=== PATIENT | male | born 1965 | race Caucasian/White ===

== ENCOUNTER 2020-06-12 06:21 | Day surgery (SDC) | payer BC ==
[~2020-06-12] VITALS: Ht 182.9 cm; Wt 90.7 kg
[~2020-06-12 06:21] MED LIST: FISH OIL 1,0001 EAC1 PO; GLUCOSAMINE &1 EAC1 PO; IBUPROFEN600 MG PO; LORATADINE10 MG PO; PERCOCET 7.5-31 EACH PO
[2020-06-12] MEDS ORDERED: MACULAR HEALTH1 EACH PO (06:36)
[2020-06-12] MEDS ORDERED: VITAMIN D250 MCG PO (06:36)
[2020-06-12] MEDS ORDERED: VITAMIN C500 M1 PO (06:37)
--- NOTE | 2020-06-12 08:21 | NUR ---
PT ALERT, ORIENTED AND SEEMED TO DEAL WITH PREP APPROPRIATELY. PT IS LEAVING FOR A LONG TRIP IMMEDIATELY FOLLOWING DC. ALL QUESTIONS ASKED ANSWERED. PT REQUESTED PRAYER,
--- NOTE | 2020-06-12 08:24 | NUR ---
06/12/20 0824 Renea Rivera 0818- PT ARRIVES TO PACU. PT IS ABLE TO ANSWER QUESTIONS. PT REPORTS NO PAIN OR NAUSEA. PT EDUCATED TO PASS FLATUS NEEDED. PT STATES UNDERSTANDING. RESP EVEN AND UNLABORED. OXYGEN SAT HIGH 90'S TO 100% ON 3L VIA NC. PT HAS A LOWER PULSE AT BASELINE AND HAS BEEN BETWEEN 37-52.
--- NOTE | 2020-06-12 10:41 | OR ---
[facility] [address], [place] [address] Signed DATE OF OPERATION: SURGEON: Gio Geronimo MD PREOPERATIVE DIAGNOSES: 1. Positive Cologuard test. 2. Symptom free; no family history of colon cancer. POSTOPERATIVE DIAGNOSES: 1. Small polyp of cecum (excised). 2. Diverticulosis of sigmoid. PROCEDURE: Total colonoscopy to cecum with cold morcellation polypectomy x1. ANESTHESIA: Intravenous sedation, fentanyl 100 mcg and Versed 5 mg. INDICATION: This 54-year-old white man is patient of Dr. 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 The patient underwent a Cologuard test. He has no symptoms of bleeding diarrhea or constipation. The Cologuard test was positive. He has no family history of colon cancer, colon problems otherwise. He is admitted at this time to undergo colonoscopy on the basis of his positive Cologuard test. He understands the risks of bleeding, infection, and perforation, and wished to proceed. FINDINGS: The prep was good. Complete colonoscopy was undertaken of the cecum. Intubation of the ileum was accomplished as well. There was a very small polyp of the cecum, which was excised. The remaining colon was normal except for diverticulosis of the sigmoid. DESCRIPTION OF PROCEDURE: The patient was brought to the endoscopy suite and placed in lateral decubitus position, given intravenous sedation to the point of slurred speech and nystagmus with full cardiopulmonary monitoring. Digital rectal examination was found to be normal. An Olympus video colonoscope was passed in the rectum and manipulated throughout the colon noting numerous diverticula of the sigmoid and left colon. The prep was reasonably good. The scope was then ultimately passed to the cecum. The ileocecal valve and appendiceal orifice were normal. The scope was passed into the terminal ileum Electronically Signed By: GIO GERONIMO MD 06/12/20 1041 PATIENT NAME: CHARLIE MELENDEZ OPERATIVE REPORT DATE OF : 63 REPORT #: [id number] PHYSICIAN: GIO GERONIMO MD PCP: NAVDEEP CASTRO MD REPORT IS CONFIDENTIAL AND NOT TO BE RELEASED WITHOUT AUTHORIZATION [facility] [address], [place] [address] Signed and passed about 5-6 cm, which was also normal. The scope was withdrawn to the cecum and a small adenomatous appearing polyp was noted of the cecum. Narrow band imaging confirmed this impression. The lesion was excised with cold morcellation technique completely. The scope was carefully withdrawn and remaining examination showed no sign of other polyps or other abnormality. Retroflexed view of the rectum was normal as well. The scope was removed and the patient was taken to the recovery room in good condition. Special note, extreme care and caution were taken to thoroughly examine each and every cm of the colon on the basis of his Cologuard test and I am highly confident no other lesions would have been seen. CONCLUSION DIAGNOSIS: Small polyp of cecum (excised diverticulosis). PLAN: Recommend repeat colonoscopy in 3 years sooner if clinically indicated. Await pathology report to confirm adenomatous nature of the polyp. MD SARA Pérez/MARKUSL /[id number] cc: Navdeep Castro MD Copies: NAVDEEP CASTRO MD ~ Electronically Signed By: GIO GERONIMO MD 06/12/20 1041 PATIENT NAME: CHARLIE MELENDEZ OPERATIVE REPORT DATE OF : 63 REPORT #: [id number] PHYSICIAN: GIO GERONIMO MD PCP: NAVDEEP CASTRO MD REPORT IS CONFIDENTIAL AND NOT TO BE RELEASED WITHOUT AUTHORIZATION
--- NOTE | 2020-06-15 17:56 | PATH ---
[facility] [address], [place] [address] Signed SPECIMEN(S): A CECAL POLYP SPECIMEN SOURCE: A. CECAL POLYP CLINICAL HISTORY: Colonoscopy. Positive Cologuard test. MICROSCOPIC DESCRIPTION: Histologic sections of all submitted blocks are examined by light microscopy. These findings, together with the gross examination, support the pathologic diagnosis. FINAL PATHOLOGIC DIAGNOSIS: Colon, cecum, polyp, polypectomy: - Fragments of colonic mucosa with no histopathologic abnormality. - Negative for dysplasia or malignancy. - See comment. COMMENT: The mucosal tissue contains a benign mucosal lymphoid aggregate, which may sometimes appear as a polypoid lesion during colonoscopy. NAL:cml:C2NR GROSS DESCRIPTION: The specimen, labeled "MR, cecum polyp," is received in formalin and consists of two ramsey soft tissue fragments that measure 0.2 cm in greatest dimension. The specimen is entirely submitted in cassette (A1). JS (under the direct supervision of a pathologist) The Gross Description was prepared using a voice recognition system. The report was reviewed for accuracy; however, sound-alike word errors, addition and/or deletions may occur. If there is any question about this report, please contact Client Services. PERFORMING LABORATORY: The technical component was performed by [facility], [address] [place] [id number] (Air Quality Consultant: Mirela Davison MD; CLIA# [id number]). [facility], [address] [address] (CLIA# [id number]). PATIENT NAME: CHARLIE ROBBINS PATHOLOGY DATE OF : 63 REPORT #: [id number] PHYSICIAN: TWYLA PATHOLOGY PCP: SY WOODARD MD REPORT IS CONFIDENTIAL AND NOT TO BE RELEASED WITHOUT AUTHORIZATION [address] [place], [place] [address] Signed Diagnostician: Kajal Elder MD Pathologist Electronically Signed 06/15/2020 Copies: ~ PATIENT NAME: CHARLIE ROBBINS PATHOLOGY DATE OF : 63 REPORT #: [id number] PHYSICIAN: TWYLA PATHOLOGY PCP: SY WOODARD MD REPORT IS CONFIDENTIAL AND NOT TO BE RELEASED WITHOUT AUTHORIZATION
== END 2020-06-12 08:58 | disposition home or self-care (01) ==
LOC: DS 06:21 → OPS 06:21 → DS 06:25 → OPS 06:45
PROVIDERS: ATTEND Surgery
PROC: 0DBH8ZZ Excision of Cecum, Via Natural or Artificial Opening Endoscopic (ICD-10-PCS; principal; 2020-06-12 06:45)
DX: K63.5 Polyp of colon (principal); K57.30 Diverticulosis of large intestine without perforation or abscess without bleeding; G89.29 Other chronic pain; M54.5 Low back pain; Z88.8 Allergy status to other drugs, medicaments and biological substances; Z79.899 Other long term (current) drug therapy; Z98.890 Other specified postprocedural states
CPT/HCPCS: 99153; G0500; J2250; J3010; J7121

== ENCOUNTER → 2022-03-05 | Outpatient (CLI) | payer SELFPAY ==
[~2022-03-05] MED LIST changes: +MACULAR HEALTH1 EACH PO; +VITAMIN C500 M1 PO; +VITAMIN D250 MCG PO
== END ==
LOC: PHA 08:12
PROVIDERS: ATTEND Emergency Medicine
DX: U07.1 COVID-19 (principal)

== ENCOUNTER 2022-06-30 06:00 | Day surgery (SDC) | payer BC ==
[~2022-06-30] VITALS: Ht 182.9 cm; Wt 86.4 kg
[2022-06-30] MEDS ORDERED: ALLEGRA ALLERG180 MG PO (06:13)
[2022-06-30] MEDS ORDERED: B COMPLEX1 EACH PO (06:13)
--- NOTE | 2022-06-30 07:27 | NUR ---
VISTED WITH PT PRIOR TO SURGERY. PT SHARED THAT IT HAD BEEN DIFFICULT TO GET THE IV STARTED. TALKED WITH PT FOR A SHORT WHILE. PRAYED WITH PT.
--- NOTE | 2022-06-30 08:47 | NUR ---
06/30/22 0847 Antonieta Tiwari 0835 PATIENT TO PACU BAY 2. REPORT RECIEVED FROM GAYATHRI GRIJALVA. PATIENT IS NONREACTIVE. PATIENT HAS AN OPA IN PLACE. OXYGEN AT 6 LITERS VIA MASK. BREATHING EQUAL AND UNLABORED. SURGICAL SITE DRESSING CLEAN, DRY AND INTACT. IVF INFUSING. SCD'S ON. 08 PATIENT NONREACTIVE. OPA IN PLACE. OXYGEN AT SIX LITERS VIA MASK. BREATHING EQUAL AND UNLABORED. OXYGEN SATURATIONS ABOVE 90%. IVF INFUSING. SCD'S ON. 844 OPA REMOVED. OXYGEN AT 6 LITERS VIA MASK. BREATHING EQUAL AND UNLABORED. PATIENT IS REATIVE TO VERBAL STIMULI. PATIENT DENIES PAIN OR BEING NAUSEATED AT THIS TIME. SINUS VIRI ON TELE. SCD'S ON. IVF INFUSING.
[2022-06-30] MEDS ORDERED: OXYCODON-ACETA1 EAC2 PO (08:59)
[2022-06-30] MEDS ORDERED: ACETAMINOPHEN500 MG PO (08:59)
[2022-06-30] MEDS ORDERED: IBUPROFEN600 MG PO (08:59)
--- NOTE | 2022-06-30 09:36 | NUR ---
0920 PATIENT BACK FROM PACU. PATIENT IS ALERT AND ORIENTED. BREATHING EQUAL AND UNLABORED. OXYGEN SATURATIONS ABOVE 95% ON ROOM AIR. PATIENT SALINE LOCKED. SURGICAL SITE CLEAN, DRY AND INTACT. SCD'S ON. PATIENT DRINKING WATER AND EATING PUDDING. NO QUESTIONS AT THIS TIME. CALL LIGHT WITHIN REACH NO FUTHER NEEDS.
--- NOTE | 2022-06-30 10:02 | NUR ---
LE 0958 PATIENT GIVEN PRN PERCOCET FOR PAIN AT SURGICAL SITE. NO QUESTIONS AT THIS TIME. CALL LIGHT WITHIN REACH NO FUTHER NEEDS.
--- NOTE | 2022-06-30 11:26 | NUR ---
LE 1035 PATIENT HAS MET DISCHARGE CRITERIA. INSTRUCTIONS GIVEN AND UNDERSTOOD. NO QUESTIONS AT THIS TIME. PATIENT WAS WHEELED OUT OF FACILITY TO PRIVATE AUTO WITH SON. NO FUTHER NEEDS.
--- NOTE | 2022-07-03 14:34 | OR ---
[facility] [address] [place], [place] [address] Signed DATE OF OPERATION: 06/30/2022 SURGEON: Gio Geronimo MD PREOPERATIVE DIAGNOSIS: Right inguinal hernia. POSTOPERATIVE DIAGNOSES: 1. Right inguinal hernia, direct and indirect. 2. Large lipoma of the cord. PROCEDURES: 1. Right inguinal hernia repair with implantation of Prolene mesh underlay technique and excision of high ligation of sac. 2. Excision of cord lipoma. ANESTHESIA: General, LMA, Celso Gomez, VOCATIONAL TRAINING INSTRUCTOR and local 10 mL of 0.25% Marcaine with epinephrine. 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 He has in the meantime developed a right inguinal hernia. He is admitted to undergo repair of the hernia. He understands the risks of bleeding, infection, recurrence and so on. FINDINGS: An indirect sac was noted, moderate in size. There was no sign of sliding component. High ligation and excision of the sac was undertaken. Additionally, there was a cord lipoma, which was rather bulky. This was excised as well. A direct hernia was also noted with attenuation of the fibers of the fascia transversalis with direct herniation as well. On that basis, implantation of Prolene mesh was undertaken in the underlay technique. DESCRIPTION OF PROCEDURE: The patient was brought to the operating room, given a general LMA type anesthetic. Preoperative antibiotic Ancef was given. Sequential compression device stockings were used and heparin subcutaneously administered. The abdomen was prepared with a chlorhexidine solution after clipping in the lower abdomen. A small incision was made directly over the cord cephalad to the pubic tubercle. Dissection was carried through Electronically Signed By: GIO GERONIMO MD 07/03/22 1434 PATIENT NAME: CHARLIE ROBBINS OPERATIVE REPORT DATE OF : 63 REPORT #: [id number] PHYSICIAN: GIO GERONIMO MD PCP: NAVDEEP WOODARD MD REPORT IS CONFIDENTIAL AND NOT TO BE RELEASED WITHOUT AUTHORIZATION [facility] [address] [place], [place] [address] Signed the subcutaneous tissue with blunt electrocautery dissection. The external oblique was incised along its fibers revealing the underlying cord. The external oblique was reflected medially and laterally and the cord was freed from the canal with blunt electrocautery dissection. Cremasteric muscle fibers of the cord were incised revealing underlying indirect hernia sac. The hernia sac was rather large, though had no sign of incarcerated viscus. The hernia sac was dissected from the cord with meticulous care, opened and internally inspected showing no sign of sliding component. The neck of the hernia sac was secured with 2-0 silk sutures doubly applied and redundant hernia sac amputated and passed for pathology. An Allis clamp was applied to the tendon of the transversus abdominis. Inspection of the floor showed direct herniation as well. The attenuated fibers of the fascia transversalis were incised with electrocautery and the properitoneal fat was bluntly . The segment of Prolene mesh was cut to an elliptical configuration and secured in an underlay technique with interrupted 2-0 Prolene suture. The tails of the graft were taken laterally and avoidance of excessive tightening laterally was undertaken. The cord lipoma was dissected free from the cord as well and the vascular pedicle secured with hemostats to allow for excision of the lipoma and the pedicles were secured with 2-0 silk ties. A 10 mL of 0.25% Marcaine with epinephrine was injected locally. The cord was placed into the canal. Irrigation was undertaken. Aerosolized Tisseel fibrin glue was applied to the cord structures and the floor in particular to assure hemostasis. The external oblique was reapproximated with running 2-0 Vicryl suture after placing the cord into the canal. Alvina's layer was reapproximated with interrupted 2-0 Vicryl and skin closed with running subcuticular 3-0 Vicryl. Steri-Strips were applied as was an Acticoat dressing. The patient was extubated and transferred to the recovery room in good condition and suffered no complications. Sponge, needle, and instrument counts were reported as correct x3. MD SARA Pérez/MODL /[id number] cc: MD Navdeep Brandon MD Electronically Signed By: GIO GERONIMO MD 07/03/22 1434 PATIENT NAME: CHARLIE ROBBINS OPERATIVE REPORT DATE OF : 63 REPORT #: [id number] PHYSICIAN: GIO GERONIMO MD PCP: NAVDEEP WOODARD MD REPORT IS CONFIDENTIAL AND NOT TO BE RELEASED WITHOUT AUTHORIZATION [address] [address] Signed Copies: STANLEY ROBBINS MD, MALCOLM MD ~ Electronically Signed By: GIO GERONIMO MD 07/03/22 1434 PATIENT NAME: CHARLIE ROBBINS OPERATIVE REPORT DATE OF : 63 REPORT #: [id number] PHYSICIAN: GIO GERONIMO MD PCP: NAVDEEP WOODARD MD REPORT IS CONFIDENTIAL AND NOT TO BE RELEASED WITHOUT AUTHORIZATION
--- NOTE | 2022-07-04 18:46 | PATH ---
[facility] [address] [place], [place] [address] Signed SPECIMEN(S): A RIGHT INDIRECT HERNIA SAC SPECIMEN(S): B LIPOMA OF CORD SPECIMEN SOURCE: A. RIGHT INDIRECT HERNIA SAC B. LIPOMA OF CORD CLINICAL HISTORY: No preop or clinical information is given on requisition. FINAL PATHOLOGIC DIAGNOSIS: A. Hernia sac, right indirect, repair: - Unremarkable fibroadipose tissue. (see comment) B. Lipoma of cord, excision: - Mesothelial-lined fibrous tissue, fibrovascular tissue and fibroadipose tissue. (see comment) COMMENT: Specimen A, designated right indirect hernia sac, contains benign fibroadipose tissue, while specimen B, designated lipoma of cord, contains saccular tissue comprised of mesothelial-lined fibrous tissue. Despite their designations, the fibroadipose tissue would be more consistent with a lipoma of cord and the saccular mesothelial-lined fibrous tissue would be more consistent with a hernia sac. The specimens may have been switched, and clinical correlation is recommended. Of note, there is no evidence of malignant neoplasm in either specimen. NRT:cml:C2NR MICROSCOPIC EXAMINATION: Histologic sections of all submitted blocks are examined by light microscopy. These findings, together with the gross examination, support the pathologic diagnosis. GROSS DESCRIPTION: Two specimens are received in two containers, labeled "MR." A. The specimen, labeled "MR, A," and designated on the requisition "right indirect hernia sac," is received in formalin and consists of a ragged, somewhat saccular, yellow fibrofatty to ramsey-white fibromembranous, 6.7 x 5.2 x 1.5 cm, unoriented tissue piece without a discrete mass/lesion. Tipple Mechanic sections are submitted in one cassette (A1). PATIENT NAME: CHARLIE ROBBINS PATHOLOGY DATE OF : 63 REPORT #: [id number] PHYSICIAN: TWYLA PATHOLOGY PCP: SY WOODARD MD REPORT IS CONFIDENTIAL AND NOT TO BE RELEASED WITHOUT AUTHORIZATION [facility] [address] [place], [place] [address] Signed B. The specimen, labeled "MR, B," and designated on the requisition "lipoma of cord," is received in formalin and consists of a somewhat saccular, ragged, ramsey-white, fibromembranous, irregularly shaped, 5.7 x 3.7 x 0.6 cm tissue piece without the attached soft tissue or a discrete mass/lesion. Tipple Mechanic sections are submitted in one cassette (B1). AI (under the direct supervision of a pathologist) The Gross Description was prepared using a voice recognition system. The report was reviewed for accuracy; however, sound-alike word errors, addition and/or deletions may occur. If there is any question about this report, please contact Client Services. PERFORMING LABORATORY: The technical component was performed by [facility], [address] [place] [id number] (CLIA# [id number]). Professional interpretation was performed by [facility], [facility], [address] [facility], [facility] [place] [address] (CLIA# [id number]). Diagnostician: Lula Mai MD Pathologist Electronically Signed 07/04/2022 Copies: ~ PATIENT NAME: CHARLIE ROBBINS PATHOLOGY DATE OF : 63 REPORT #: [id number] PHYSICIAN: TWYLA PATHOLOGY PCP: SY WOODARD MD REPORT IS CONFIDENTIAL AND NOT TO BE RELEASED WITHOUT AUTHORIZATION
== END 2022-06-30 10:35 | disposition home or self-care (01) ==
LOC: DS 06:00
PROVIDERS: ATTEND Surgery
PROC: 0VBF0ZZ Excision of Right Spermatic Cord, Open Approach (ICD-10-PCS; 2022-06-30)
PROC: 0YU50JZ Supplement Right Inguinal Region with Synthetic Substitute, Open Approach (ICD-10-PCS; principal; 2022-06-30 07:30)
DX: K40.90 Unilateral inguinal hernia, without obstruction or gangrene, not specified as recurrent (principal); D17.6 Benign lipomatous neoplasm of spermatic cord; G89.29 Other chronic pain; M54.50 Low back pain, unspecified; Z88.6 Allergy status to analgesic agent
CPT/HCPCS: 00830; C1781; J0690; J1100; J1644; J1885; J2405; J2704; J3010; J7121

== ENCOUNTER 2024-02-01 11:57 | Day surgery (SDC) | payer BC ==
[~2024-02-01] VITALS: Ht 182.9 cm; Wt 90.9 kg
[~2024-02-01 11:57] MED LIST changes: +ACETAMINOPHEN500 MG PO; +ALLEGRA ALLERG180 MG PO; +B COMPLEX1 EACH PO; +IBLOOD GLUCOSE TEST STRIP 1 EA TEST VI PRN; +LACTATED RINGER'S 1,000 ML IV SCH; +LIDOCAINE HCL 1% 5 ML SDV INJ ONE; +MIDAZOLAM HCL 5 MG/5 ML VIAL IV PRN; +OXYCODON-ACETA1 EAC2 PO; +fentaNYL citrate 100 MCG/2 ML VIAL IV PRN
[2024-02-01 12:22] VITALS: BP 119/77
[2024-02-01] MEDS ORDERED: ZYRTEC10 MG PO (12:25)
[2024-02-01] MEDS ORDERED: MIDAZOLAM HCL 5 MG/5 ML VIAL ONE (13:17)
[2024-02-01] MEDS ORDERED: fentaNYL citrate 100 MCG/2 ML VIAL ONE (13:17)
--- NOTE | 2024-02-01 14:12 | NUR ---
02/01/24 1412 Juliana Alvarez 1407-PATIENT ARRIVED TO PACU ON 2L NC RR EVEN. PATIENT DROWSY, AWAKE LAYING LEFT LATERAL. DENIES PAIN OR NAUSEA. ORIENTED TO PACU. IVF INFUSING. ABDOMEN SOFT. PATIENT REPOSITIONS SELF IN BED. 1411-PATIENT RESTING WITH EYES CLOSED 2L NC 100% ENCOURAGED DEEP BREATHING
[2024-02-01 14:44] VITALS: BP 118/79
--- NOTE | 2024-02-01 15:29 | OR ---
[facility] [address] [place], [place] [address] Signed DATE OF OPERATION: 02/01/2024 SURGEON: Gio Geronimo MD PREOPERATIVE DIAGNOSIS: Colon screening. POSTOPERATIVE DIAGNOSIS: Two polyps, left transverse and rectum. PROCEDURE: Total colonoscopy to cecum with cold morcellation polypectomy x2. ANESTHESIA: Intravenous sedation; fentanyl 100 mcg and Versed 5 mg. 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 He underwent colonoscopy four years ago and was thought to have a cecal polyp which proved to be a lymphoid aggregate. He is symptom free having no bleeding, diarrhea or constipation. He wished to undergo colonoscopy at this time for screening purposes. He understands the risk of bleeding, infection, and perforation and wished to proceed. FINDINGS: The prep was good. Complete and full intubation of the cecum was accomplished without problem. There was no abnormality of the cecum on this occasion. There was a small adenomatous appearing polyp of the left transverse colon which was excised with cold morcellation technique and a very small probably hyperplastic polyp of the rectum and it was similarly excised. There were no other findings of note. DESCRIPTION OF PROCEDURE: The patient was brought to the endoscopy suite and placed in the lateral decubitus position, given intravenous sedation to the point of slurred speech and nystagmus. Digital rectal examination was normal including a normal prostate. Olympus video colonoscope was passed in the rectum and manipulated throughout the colon ultimately intubating the cecum itself. The ileocecal valve and appendiceal orifice were normal. Scope was withdrawn and examination was undertaken with irrigation as necessary. On the left transverse colon, there was a small adenomatous appearing polyp, this was excised with cold morcellation technique without problem. Further withdrawal of the scope ultimately showed another small polyp of the rectum, which appeared probably Electronically Signed By: GIO GERONIMO MD 02/01/24 1529 PATIENT NAME: CHARLIE ROBBINS OPERATIVE REPORT DATE OF : 63 REPORT #: [id number] PHYSICIAN: GIO GERONIMO MD PCP: NAVDEEP CASTRO MD REPORT IS CONFIDENTIAL AND NOT TO BE RELEASED WITHOUT AUTHORIZATION [facility] [address] [place], [place] [address] Signed hyperplastic. Photographs have been taken of both polyps. It too was excised. The remaining colon was normal. Scope was removed and the patient was taken to the recovery room in good condition. CONCLUDING DIAGNOSIS: Polyps x2. PLAN: Recommend repeat colonoscopy in 3 to 5 years, sooner if clinically indicated. He will return to the ongoing care of Dr. Castro. MD SARA Pérez/MARKUSL /[id number] cc: Navdeep Castro MD Copies: NAVDEEP CASTRO MD ~ Electronically Signed By: GIO GERONIMO MD 02/01/24 1529 PATIENT NAME: CHARLIE ROBBINS OPERATIVE REPORT DATE OF : 63 REPORT #: [id number] PHYSICIAN: GIO GERONIMO MD PCP: NAVDEEP CASTRO MD REPORT IS CONFIDENTIAL AND NOT TO BE RELEASED WITHOUT AUTHORIZATION
--- NOTE | 2024-02-05 11:43 | PATH ---
[facility] [address] [place], [place] [address] Signed SPECIMEN(S): A TRANSVERSE COLON POLYP SPECIMEN(S): B RECTAL POLYP SPECIMEN SOURCE: A. TRANSVERSE COLON POLYP B. RECTAL POLYP CLINICAL HISTORY: Colonoscopy. History of polyps FINAL PATHOLOGIC DIAGNOSIS: A. Transverse colon polyp, biopsy: - Tubular adenoma. B. Rectal polyp, biopsy: - Hyperplastic polyp. AMB MICROSCOPIC EXAMINATION: Histologic sections of all submitted blocks are examined by light microscopy. These findings, together with the gross examination, support the pathologic diagnosis. GROSS DESCRIPTION: A. The specimen, labeled and designated "Nora, transverse colon polyp," is received in formalin and consists of one ramsey soft tissue fragment, 0.2 cm. Entirely submitted in (A1). B. The specimen, labeled and designated "Nora, rectal polyp," is received in formalin and consists of one ramsey soft tissue fragment, 0.2 cm. Entirely submitted in (B1). JS (under the direct supervision of a pathologist) The Gross Description was prepared using a voice recognition system. The report was reviewed for accuracy; however, sound-alike word errors, addition and/or deletions may occur. If there is any question about this report, please contact Client Services. ADDITIONAL NOTES: Immunohistochemical and/or in situ hybridization studies if performed in this case included appropriate positive controls that reacted as expected. This test was developed and its performance characteristics determined by [facility]. It has not been cleared or approved by the U.S. Food and Drug Administration. The FDA has determined that PATIENT NAME: CHARLIE ROBBINS PATHOLOGY DATE OF : 63 REPORT #: [id number] PHYSICIAN: TWYLA WATERS PCP: SY WOODARD MD REPORT IS CONFIDENTIAL AND NOT TO BE RELEASED WITHOUT AUTHORIZATION [address], [place] [address] Signed such clearance or approval is not necessary. This test is used for clinical purposes. It should not be regarded as investigational or for research. [facility] is certified under the Clinical Laboratory Improvement Amendments of 1988 (CLIA) as qualified to perform high complexity clinical laboratory testing. PERFORMING LABORATORY: Technical component was performed by [facility], [address] [place] [id number] (CLIA# [id number]). Professional interpretation was performed by [facility] - [address] [id number] Diagnostician: Mirela Davison MD Pathologist Electronically Signed 02/05/2024 Copies: ~ PATIENT NAME: CHARLIE ROBBINS PATHOLOGY DATE OF : 63 REPORT #: [id number] PHYSICIAN: TWYLA WATERS PCP: SY WOODARD MD REPORT IS CONFIDENTIAL AND NOT TO BE RELEASED WITHOUT AUTHORIZATION
== END 2024-02-01 14:55 | disposition home or self-care (01) ==
LOC: DS 11:57 → OPS 11:57 → DS 13:00 → OPS 13:00
PROVIDERS: ATTEND Surgery
PROC: 0DBL8ZX Excision of Transverse Colon, Via Natural or Artificial Opening Endoscopic, Diagnostic (ICD-10-PCS; principal; 2024-02-01 13:00)
DX: Z12.11 Encounter for screening for malignant neoplasm of colon (principal); D12.3 Benign neoplasm of transverse colon; K62.1 Rectal polyp; M54.50 Low back pain, unspecified; N43.3 Hydrocele, unspecified; L76.22 Postprocedural hemorrhage of skin and subcutaneous tissue following other procedure; K40.90 Unilateral inguinal hernia, without obstruction or gangrene, not specified as recurrent; Z88.8 Allergy status to other drugs, medicaments and biological substances; Z79.899 Other long term (current) drug therapy
CPT/HCPCS: 99153; G0500; J2250; J3010; J7121